=== PATIENT | female | born 1985 | race Caucasian/White ===

== ENCOUNTER 2017-01-07 16:09 | Emergency (ER) | payer OTHER ==
[~2017-01-07] VITALS: Ht 157.5 cm; Wt 58.6 kg
[2017-01-07 17:41] LABS: HEMATOCRIT 42.5 % (36.0-46.0); MCH 30.4 PG (29.0-34.0); MCHC 32.2 G/DL (30.0-36.0); MCV 94.2 FL (83-99); MEAN PLAT.VOLUME 10.4 uM^3 (9.5-12.4); PLATELET COUNT 288 K/uL (156-360); RBC DIS.WIDTH-CV 13.1 % (11.8-14.6); RBC DIS.WIDTH-SD 45.3 % (39-53); RED BLOOD COUNT 4.51 M/uL (3.80-5.20); WHITE BLOOD COUNT 9.2 K/uL (4.1-10.2)
[2017-01-07 17:56] LABS: D-DIMER ELISA 0.51 mg/L FEU (< 0.57)
[2017-01-07 17:57] LABS: CHLORIDE 105 mEq/L (99-109); POTASSIUM 4.6 mEq/L (3.7-5.4); SODIUM 139 mEq/L (136-147)
[2017-01-07 17:58] LABS: GLUCOSE 86 mg/dL (70-99)
[2017-01-07 18:00] LABS: ANION GAP 8 MEQ/L (2-14)
[2017-01-07 18:02] LABS: GFR ESTIMATE (CALCULATED) > 59 mL/min/
[2017-01-07 18:03] LABS: UREA NITROGEN (BUN) 12 mg/dL (9-23)
[2017-01-07 18:13] LABS: QUANTITATIVE HCG < 4.0 MIU/ML
[2017-01-07] MEDS ORDERED: VALIUM5 MG PO (18:24)
[2017-01-07 18:42] VITALS: BP 113/77
== END 2017-01-07 18:43 | disposition home or self-care (01) ==
LOC: EME 16:09
PROVIDERS: Physician Assistant
DX: S29.012A Strain of muscle and tendon of back wall of thorax, initial encounter (principal); S29.011A Strain of muscle and tendon of front wall of thorax, initial encounter; G71.0 Muscular dystrophy
CPT/HCPCS: 71020; 80048; 84702; 85027; 85379; 93005; 99281; 99284